=== PATIENT | male | born 1990 | race American Indian/Alaskan Native ===

== ENCOUNTER 2017-02-09 14:47 | Emergency (ER) | payer SELFPAY ==
[2017-02-09 15:07] VITALS: BP 151/109
== END 2017-02-09 20:40 | disposition left against medical advice (07) ==
LOC: ED 14:47
DX: H57.8 Other specified disorders of eye and adnexa (principal); Z53.21 Procedure and treatment not carried out due to patient leaving prior to being seen by health care provider

== ENCOUNTER 2017-02-10 17:42 | Emergency (ER) | payer SELFPAY ==
--- NOTE | 2017-02-10 20:37 | Emergency Department Report ---
[facility] Chief Complaint: Eye Problems Stated Complaint: INFECTED L EYE Time Seen by Provider: 02/10/17 20:15 Duration: 1 week Side: Left Severity: severe Symptoms: Yes Eye Itching, Yes Eye Redness, Yes Mucous Drainage, No Eye Pain, No Blurred Vision, No Preceding URI, No Contact Lens Use, No Trauma, No Fever, No Headache Other History: 26-year-old male presents today with pinkeye 1 week. Positive for mucus discharge. Patient states that he was exposed to by his little sister was diagnosed with conjunctivitis. Patient [place] and was prescribed some drops and ointment, name unknown. Patient states he took medication as prescribed without relief. Denies eye pain, vision change , cough or cold symptoms, fever, chills, nausea, vomiting, chest pain, shortness of breath, abdominal pain, headache. ED Review of Systems ROS: Stated complaint: INFECTED L EYE Other details as noted in HPI Constitutional: denies: chills, fever, malaise Eyes: eye discharge. denies: eye pain, vision change ENT: denies: ear pain, throat pain, congestion Respiratory: denies: cough, shortness of breath, wheezing Cardiovascular: denies: chest pain, palpitations Endocrine: no symptoms reported Gastrointestinal: denies: abdominal pain, nausea, vomiting Neurological: denies: headache, weakness ED Past Medical Hx - Past Medical History Previous Medical History?: No Additional medical history: Left eye irritation - Surgical History Past Surgical History?: No - Social History Smoking Status: Current Every Day Smoker Substance Use Type: Alcohol - Medications Home Medications: Home Medications Medication Instructions Recorded Confirmed Last Taken Type Levofloxacin [levofloxacin OPTH] 1 - 2 drop OP Q2HWA #1 bottle 02/10/17 Unknown Rx [facility] Exam - Exam General: Vital signs noted. No distress. Alert and acting appropriately. Eye Exam: Left Injection, Left Chemosis, Left Mucous Discharge, Left Photophobia , Both EOMI, Neither Abnormal Pupil, Neither Eye Foreign Body, Neither Lid Foreign Body HEENT: No Nasal Congestion, No Pharyngeal Erythema Remainder of HEENT: Normal Lungs: Yes Clear Lung Sounds, Yes Good Air Exchange, No Wheezes, No Stridor, No Cough, No Nasal Flaring Exam: GENERAL: The patient is well-developed and well-nourished. Patient is in NAD. HEAD: Normocephalic. Atraumatic. NOSE: Normal nasal mucosa with no nasal discharge. THROAT: No erythema, swelling or exudates. NECK: Supple, nontender, without lymphadenopathy. CHEST/LUNGS: Clear to auscultation throughout. HEART/CARDIOVASCULAR: Regular rate and rhythm. No murmurs, rubs or gallops. ABDOMEN: Abdomen is soft, nontender. Bowel sounds normoactive. No guarding or rebound tenderness. EXTREMITIES: Peripheral pulses intact. Capillary refill less than 2 seconds. NEURO: Alert and oriented x 3. Normal gait. Symmetrical strength and sensation. GCS score of 15. ED Course Vital Signs 02/10/17 19:18 Temperature 98.1 F Pulse Rate 68 Respiratory 16 Rate Blood Pressure 141/103 O2 Sat by Pulse 100 Oximetry ED Medical Decision Making - Lab Data Vital Signs 02/10/17 19:18 Temperature 98.1 F Pulse Rate 68 Respiratory 16 Rate Blood Pressure 141/103 O2 Sat by Pulse 100 Oximetry - Medical Decision Making 26-year-old male presents today with left conjunctivitis. A referral for controls project engineer has been provided. Patient is in no acute distress at this time. He will be discharged home and is encouraged to follow up with a primary care provider. He will be sent home on levofloxacin optic drops and is encouraged to return to the emergency room for any worsening symptoms. Critical care attestation.: If time is entered above; I have spent that time in minutes in the direct care of this critically ill patient, excluding procedure time. ED Disposition Clinical Impression: Conjunctivitis Qualifiers: Conjunctivitis type: acute Acute conjunctivitis type: unspecified Laterality: left Qualified Code(s): H10.32 - Unspecified acute conjunctivitis, left eye Disposition: DISCHARGED TO HOME OR SELFCARE Is pt being admited?: No Does the pt Need Aspirin: No Condition: Stable Instructions: Conjunctivitis (ED) Additional Instructions: Follow up with primary care provider and controls project engineer. Return to the ED if symptoms worsen. Prescriptions: Levofloxacin [levofloxacin OPTH] 1 - 2 drop OP Q2HWA #1 bottle Referrals: JOÃO MCCLENDON MD [Primary Care Provider] - 3-5 Days DEREK LYN MD [Staff Physician] - 3-5 Days Forms: Work/School Release Form(ED) Time of Disposition: 21:00
[2017-02-10 21:41] VITALS: BP 121/81
== END 2017-02-10 21:38 | disposition home or self-care (01) ==
LOC: ED 17:42
DX: H10.32 Unspecified acute conjunctivitis, left eye (principal); F17.200 Nicotine dependence, unspecified, uncomplicated
CPT/HCPCS: 99282